=== PATIENT | female | born 1960 | race African-American/Black ===

== ENCOUNTER 2020-10-20 10:25 | Inpatient (IN) | payer MEDICARE, OTHER ==
[~2020-10-20] VITALS: Ht 157.5 cm; Wt 189.0 kg
[~2020-10-20 10:25] MED LIST: ATEN-60 PO; HYDR25TA5 GT
[2020-10-20] MEDS ORDERED: FUROSEMIDE 40 MG/4 ML VIAL IV ONE (11:00)
[2020-10-20 11:13] LABS: Basophils # (auto) 0 10 ^3/uL (0-0.2); Eosinophils # (auto) 0.1 10 ^3/uL (0-0.8); Eosinophils % (auto) 1.5 % (0.0-7.0); Hemoglobin 12.9 g/dL (12.2-16.2); Lymphocytes # (auto) 0.9 10 ^3/uL (0.4-5.4); Monocytes # (auto) 0.7 10 ^3/uL (0-1.3); Nucleated Red Blood Cells % 0.6 %
[2020-10-20 11:14] LABS: Basophils % (auto) 0.6 % (0.0-2.0); Hematocrit 43.1 % (36.0-46.0); Lymphocytes % (auto) 13.1 % (10.0-50.0); Mean Corpuscular Hemoglobin 27.5 pg (28.0-32.0); Mean Corpuscular Hgb Conc. 29.9 g/dL (32.0-36.0); Mean Corpuscular Volume 92.1 fL (80.0-100.0); Monocytes % (auto) 10.3 % (0.0-12.0); Neutrophils % (auto) 74.5 % (37.0-80.0); Red Blood Cells 4.68 10^6/uL (4.0-5.20); White Blood Cell 6.7 10^3/uL (4.4-10.8)
[2020-10-20 11:35] LABS: Calcium 9.4 mg/dL (8.5-10.1); Magnesium 2.2 mg/dL (1.6-2.6); Potassium 4.6 mmol/L (3.5-5.1)
[2020-10-20 11:41] LABS: BUN/Creatinine Ratio 18.9; Bilirubin, Total 1.2 mg/dL (0.2-1.0); Total Protein 8.6 g/dL (6.4-8.2)
[2020-10-20 11:54] LABS: Urine Bacteria NONE SEEN /hpf (None Seen); Urine Blood TRACE /uL (Negative); Urine Hyaline Cast FEW /lpf (0 - 2); Urine Specific Gravity 1.024 (1.001-1.035); Urine WBC 8 /hpf (0 - 5)
[2020-10-20 11:56] LABS: Red Cell Distribution Width 22.5 % (11.8-14.3)
[2020-10-20] MEDS ORDERED: cefTRIAXone 1GM/50ML D5W 50 ML IV ONE (12:30)
[2020-10-20] MEDS ORDERED: NITROGLYCERIN 0.4 MG SL TAB SL PRN ×2 (13:00→16:30)
[2020-10-20] MEDS ORDERED: MORPHINE SULFATE INJECTION 2 MG/ML SYRG IV PRN ×3 (13:00→16:30)
[2020-10-20] MEDS ORDERED: DOCUSATE SOD 100 MG CAP PO PRN (16:30)
[2020-10-20] MEDS ORDERED: ALBUTEROL SULF 2.5 MG/0.5ML(0.5%) NEB SOLN NEB PRN (16:30)
[2020-10-20] MEDS ORDERED: ACETAMINOPHEN 325 MG TAB PO PRN (16:30)
[2020-10-20] MEDS ORDERED: LEVOTHYROXINE SODIUM 100 MCG TAB PO ONE (16:30)
[2020-10-20] MEDS ORDERED: LORazepam 0.5 MG TAB PO PRN (16:30)
[2020-10-20] MEDS ORDERED: hydrALAZINE HCL 20 MG/ML VL IV PRN (16:30)
[2020-10-20] MEDS ORDERED: HYDROcodone-ACET 5/325MG TAB PO PRN (16:30)
[2020-10-20] MEDS ORDERED: DEXTROSE (50%) 50ML SYRG IV PRN (16:30)
[2020-10-20] MEDS ORDERED: ONDANSETRON HCL 4 MG/2 ML VIAL IV PRN (16:30)
[2020-10-20] MEDS ORDERED: ALUM & MAG HYDROX-SIMETH LIQ(MAALOX) 30 ML PO PRN (16:30)
[2020-10-20] MEDS ORDERED: LORazepam 2MG/ML-1ML VIAL IV PRN (16:45)
[2020-10-20 16:57] VITALS: BP 102/48
[2020-10-20] MEDS: InsuLIN REG 1unit/0.01ml Soln (100units/ml) SC SCH ×2 (17:00→21:51)
[2020-10-20] MEDS ORDERED: IPRATROPIUM BROM 0.5 MG/2.5ML INH SOL NEB SCH (18:00)
[2020-10-20 18:10] LABS: Cholesterol 130 mg/dL (< 200); Triglycerides 79 mg/dL (< 150)
[2020-10-20 18:12] LABS: Creatine Kinase IFCC 38 U/L (26-192); HDL Cholesterol 28 mg/dL (40-59); LDL Cholesterol 96 mg/dL (< 100)
[2020-10-20] MEDS: FUROSEMIDE 20 MG/2 ML VIAL IV SCH (18:21)
[2020-10-20] MEDS: ACCU-CHEK COMFORT CURVE STRIP VI SCH ×2 (18:21→21:51)
[2020-10-20] MEDS ORDERED: IPRATROPIUM BROM 0.5 MG/2.5ML INH SOL NEB PRN (20:15)
[2020-10-20] MEDS: ATORVASTATIN 20 MG TAB PO SCH (21:50)
[2020-10-20] MEDS: CLINDAMYCIN 600MG IV 50 ML IV SCH (21:50)
[2020-10-20] MEDS: CARVEDILOL 3.125 MG TAB PO SCH (21:51)
[2020-10-20 22:42] VITALS: BP 123/72
[2020-10-20 22:46] LABS: Urine Bacteria FEW /hpf (None Seen); Urine Blood 2+ /uL (Negative); Urine Hyaline Cast MOD /lpf (0 - 2); Urine Mucus FEW (None Seen); Urine Specific Gravity 1.011 (1.001-1.035); Urine WBC 19 /hpf (0 - 5)
[2020-10-20 22:56] LABS: Alcohol, Urine < 3.0 mg/dL (0-10); Amphetamine Screen, Urine NEGATIVE (NEGATIVE); Barbiturate Scree,Urine NEGATIVE (NEGATIVE); Benzodiazephine Screen, Urine NEGATIVE (NEGATIVE); Cannabinoid Screen, Urine NEGATIVE (NEGATIVE); Cocaine Screen, Urine NEGATIVE (NEGATIVE); Opiate Scree,Urine NEGATIVE (NEGATIVE); Phencyclidine Screen, Urine NEGATIVE (NEGATIVE)
[2020-10-21] VITALS (7 sets, daily range): BP systolic 100–123; BP diastolic 55–73
[2020-10-21] MEDS: FUROSEMIDE 20 MG/2 ML VIAL IV SCH (06:30)
[2020-10-21] MEDS: ACCU-CHEK COMFORT CURVE STRIP VI SCH ×4 (06:30→22:00)
[2020-10-21] MEDS: LEVOTHYROXINE SODIUM 100 MCG TAB PO SCH (06:30)
[2020-10-21] MEDS: CLINDAMYCIN 600MG IV 50 ML IV SCH ×3 (06:30→21:59)
[2020-10-21] MEDS: InsuLIN REG 1unit/0.01ml Soln (100units/ml) SC SCH ×4 (06:31→22:00)
[2020-10-21 08:17] LABS: Basophils # (auto) 0 10 ^3/uL (0-0.2); Eosinophils # (auto) 0.1 10 ^3/uL (0-0.8); Eosinophils % (auto) 1.6 % (0.0-7.0); Hemoglobin 11.9 g/dL (12.2-16.2); Lymphocytes # (auto) 0.7 10 ^3/uL (0.4-5.4); Mean Corpuscular Volume 92.5 fL (80.0-100.0); Neutrophils # (auto) 4.9 10 ^3/uL (1.6-8.6); White Blood Cell 6.8 10^3/uL (4.4-10.8)
[2020-10-21 08:19] LABS: Basophils % (auto) 0.6 % (0.0-2.0); Hematocrit 39.6 % (36.0-46.0); INR 1.25 (0.9-1.15); Lymphocytes % (auto) 11.1 % (10.0-50.0); Mean Corpuscular Hemoglobin 27.8 pg (28.0-32.0); Mean Corpuscular Hgb Conc. 30.1 g/dL (32.0-36.0); Monocytes % (auto) 14.2 % (0.0-12.0); Neutrophils % (auto) 72.5 % (37.0-80.0); Partial Thromboplastin Time 27.7 sec (23.0-31.2); Red Blood Cells 4.28 10^6/uL (4.0-5.20)
[2020-10-21 08:25] LABS: Red Cell Distribution Width 22.3 % (11.8-14.3)
[2020-10-21 08:30] LABS: Albumin 2.8 g/dL (3.4-5.0); Calcium 8.9 mg/dL (8.5-10.1)
[2020-10-21 08:37] LABS: BUN/Creatinine Ratio 21.7; Bilirubin, Total 0.9 mg/dL (0.2-1.0); Phosphorus 3.9 mg/dL (2.5-4.90); Total Protein 7.6 g/dL (6.4-8.2)
[2020-10-21] MEDS: CARVEDILOL 3.125 MG TAB PO SCH (09:36)
[2020-10-21] MEDS: cefTRIAXone 1GM/50ML D5W 50 ML IV SCH (09:36)
[2020-10-21] MEDS ORDERED: ENOXAPARIN SOD 40 MG/0.4 ML SYRINGE SC SCH (10:00)
[2020-10-21] MEDS: FUROSEMIDE 40 MG/4 ML VIAL IV SCH (18:08)
[2020-10-21] MEDS: ENOXAPARIN SOD 40 MG/0.4 ML SYRINGE SC SCH (21:59)
[2020-10-21] MEDS: ATORVASTATIN 20 MG TAB PO SCH (21:59)
[2020-10-22 05:00] VITALS: BP 107/63
[2020-10-22] MEDS: CLINDAMYCIN 600MG IV 50 ML IV SCH (06:23)
[2020-10-22] MEDS: ACCU-CHEK COMFORT CURVE STRIP VI SCH ×4 (06:24→21:42)
[2020-10-22] MEDS: InsuLIN REG 1unit/0.01ml Soln (100units/ml) SC SCH ×4 (06:24→21:42)
[2020-10-22] MEDS: LEVOTHYROXINE SODIUM 100 MCG TAB PO SCH (06:24)
[2020-10-22] MEDS: FUROSEMIDE 40 MG/4 ML VIAL IV SCH (06:24)
[2020-10-22 07:31] LABS: BUN/Creatinine Ratio 18.7; Calcium 9.1 mg/dL (8.5-10.1); Potassium 5.3 mmol/L (3.5-5.1)
[2020-10-22 08:39] VITALS: BP 99/62
[2020-10-22] MEDS: cefTRIAXone 1GM/50ML D5W 50 ML IV SCH (09:51)
[2020-10-22] MEDS: ENOXAPARIN SOD 40 MG/0.4 ML SYRINGE SC SCH ×2 (09:51→21:42)
[2020-10-22 12:47] VITALS: BP 107/68
[2020-10-22] MEDS: ALBUMIN 25% 100 ML IV SCH ×2 (14:51→22:29)
[2020-10-22 15:04] LABS: Urine Bacteria FEW /hpf (None Seen); Urine Blood 3+ /uL (Negative); Urine Hyaline Cast MANY /lpf (0 - 2); Urine Specific Gravity 1.017 (1.001-1.035); Urine WBC 24 /hpf (0 - 5)
[2020-10-22] MEDS: FUROSEMIDE INJECTION 100 MG in D5W 5% 100 ML IV SCH (16:18)
[2020-10-22 17:00] VITALS: BP 107/71
[2020-10-22] MEDS: ATORVASTATIN 20 MG TAB PO SCH (21:41)
[2020-10-22 22:00] VITALS: BP 119/60
[2020-10-23] MEDS: FUROSEMIDE INJECTION 100 MG in D5W 5% 100 ML IV SCH ×3 (00:21→21:44)
[2020-10-23 05:00] VITALS: BP 122/78
[2020-10-23] MEDS: LEVOTHYROXINE SODIUM 100 MCG TAB PO SCH (06:30)
[2020-10-23] MEDS: InsuLIN REG 1unit/0.01ml Soln (100units/ml) SC SCH ×4 (06:30→21:19)
[2020-10-23] MEDS: ACCU-CHEK COMFORT CURVE STRIP VI SCH ×4 (06:30→21:18)
[2020-10-23] MEDS: ALBUMIN 25% 100 ML IV SCH (06:31)
[2020-10-23 07:24] LABS: BUN/Creatinine Ratio 19.7; Calcium 9.1 mg/dL (8.5-10.1); Phosphorus 4.4 mg/dL (2.5-4.90); Potassium 5.4 mmol/L (3.5-5.1)
[2020-10-23 08:30] VITALS: BP 120/71
[2020-10-23] MEDS: cefTRIAXone 1GM/50ML D5W 50 ML IV SCH (08:37)
[2020-10-23 08:45] VITALS: BP 120/71
[2020-10-23] MEDS: ENOXAPARIN SOD 40 MG/0.4 ML SYRINGE SC SCH ×2 (09:42→21:18)
[2020-10-23 12:50] VITALS: BP 120/75
[2020-10-23 16:37] VITALS: BP 119/78
[2020-10-23] MEDS: ATORVASTATIN 20 MG TAB PO SCH (21:18)
[2020-10-23 22:00] VITALS: BP 120/62
[2020-10-24 03:35] VITALS: BP 120/62
[2020-10-24 05:00] VITALS: BP 118/68
[2020-10-24] MEDS: LEVOTHYROXINE SODIUM 100 MCG TAB PO SCH (06:06)
[2020-10-24] MEDS: ACCU-CHEK COMFORT CURVE STRIP VI SCH ×4 (06:07→21:56)
[2020-10-24] MEDS: InsuLIN REG 1unit/0.01ml Soln (100units/ml) SC SCH ×4 (06:07→21:56)
[2020-10-24] MEDS: FUROSEMIDE INJECTION 100 MG in D5W 5% 100 ML IV SCH ×2 (06:30→09:12)
[2020-10-24 08:00] VITALS: BP 112/61
[2020-10-24] MEDS: cefTRIAXone 1GM/50ML D5W 50 ML IV SCH (08:01)
[2020-10-24 09:00] VITALS: BP 112/61
[2020-10-24] MEDS: ENOXAPARIN SOD 40 MG/0.4 ML SYRINGE SC SCH ×2 (09:06→22:42)
[2020-10-24 13:42] LABS: BUN/Creatinine Ratio 22.9; Calcium 9.2 mg/dL (8.5-10.1); Potassium 4.4 mmol/L (3.5-5.1)
[2020-10-24 17:00] VITALS: BP 144/77
[2020-10-24 22:00] VITALS: BP 131/91
[2020-10-24] MEDS: ATORVASTATIN 20 MG TAB PO SCH (22:42)
[2020-10-25] MEDS: FUROSEMIDE INJECTION 100 MG in D5W 5% 100 ML IV SCH ×3 (02:35→21:52)
[2020-10-25 05:00] VITALS: BP 124/88
[2020-10-25] MEDS: LEVOTHYROXINE SODIUM 100 MCG TAB PO SCH (06:47)
[2020-10-25] MEDS: ACCU-CHEK COMFORT CURVE STRIP VI SCH ×4 (06:48→21:51)
[2020-10-25] MEDS: InsuLIN REG 1unit/0.01ml Soln (100units/ml) SC SCH ×4 (06:48→21:51)
[2020-10-25 08:00] VITALS: BP 126/74
[2020-10-25 08:42] VITALS: BP 126/74
[2020-10-25] MEDS: ENOXAPARIN SOD 40 MG/0.4 ML SYRINGE SC SCH ×2 (08:55→22:04)
[2020-10-25] MEDS: cefTRIAXone 1GM/50ML D5W 50 ML IV SCH (08:55)
[2020-10-25 11:19] LABS: BUN/Creatinine Ratio 29.5; Potassium 3.4 mmol/L (3.5-5.1)
[2020-10-25] MEDS ORDERED: POTASSIUM CHL 10 Meq TABLET PO ONE (11:45)
[2020-10-25 14:26] VITALS: BP 119/73
[2020-10-25 17:01] VITALS: BP 133/86
[2020-10-25 22:00] VITALS: BP 118/74
[2020-10-25] MEDS: ATORVASTATIN 20 MG TAB PO SCH (22:03)
[2020-10-25] MEDS: POTASSIUM CHL 10 Meq TABLET PO SCH (22:04)
[2020-10-26 05:00] VITALS: BP 130/75
[2020-10-26] MEDS: InsuLIN REG 1unit/0.01ml Soln (100units/ml) SC SCH ×2 (05:47→11:30)
[2020-10-26] MEDS: ACCU-CHEK COMFORT CURVE STRIP VI SCH ×2 (05:47→13:33)
[2020-10-26] MEDS: LEVOTHYROXINE SODIUM 100 MCG TAB PO SCH (06:07)
[2020-10-26] MEDS: FUROSEMIDE INJECTION 100 MG in D5W 5% 100 ML IV SCH (07:04)
[2020-10-26 07:14] LABS: Potassium 3.4 mmol/L (3.5-5.1)
[2020-10-26 07:18] LABS: BUN/Creatinine Ratio 26.7; Calcium 9.1 mg/dL (8.5-10.1)
[2020-10-26 08:46] VITALS: BP 147/86
[2020-10-26] MEDS: ENOXAPARIN SOD 40 MG/0.4 ML SYRINGE SC SCH (09:33)
[2020-10-26] MEDS: POTASSIUM CHL 10 Meq TABLET PO SCH ×2 (09:33→09:39)
[2020-10-26] MEDS: cefTRIAXone 1GM/50ML D5W 50 ML IV SCH (09:33)
[2020-10-26 12:33] VITALS: BP 122/71
[2020-10-26] MEDS ORDERED: LORazepam 2MG/ML-1ML VIAL IV PRN (16:00)
[2020-10-26] MEDS ORDERED: MORPHINE SULFATE INJECTION 2 MG/ML SYRG IV PRN (16:30)
[2020-10-26 16:42] VITALS: BP 117/72
== END 2020-10-26 20:00 | DRG 100 ==
LOC: ER 10:25 → EDBD 10:25 → TELE 10:26 → TELE-EAST 16:00
PROVIDERS: ADMIT Hospitalist; ATTEND Internal Medicine
PROC: 5A09357 Assistance with Respiratory Ventilation, Less than 24 Consecutive Hours, Continuous Positive Airway Pressure (ICD-10-PCS; principal; 2020-10-20)
PROC: 5A09357 Assistance with Respiratory Ventilation, Less than 24 Consecutive Hours, Continuous Positive Airway Pressure (ICD-10-PCS; 2020-10-21)
PROC: 5A09357 Assistance with Respiratory Ventilation, Less than 24 Consecutive Hours, Continuous Positive Airway Pressure (ICD-10-PCS; 2020-10-22)
PROC: 5A09357 Assistance with Respiratory Ventilation, Less than 24 Consecutive Hours, Continuous Positive Airway Pressure (ICD-10-PCS; 2020-10-23)
PROC: 5A09357 Assistance with Respiratory Ventilation, Less than 24 Consecutive Hours, Continuous Positive Airway Pressure (ICD-10-PCS; 2020-10-24)
PROC: 5A09357 Assistance with Respiratory Ventilation, Less than 24 Consecutive Hours, Continuous Positive Airway Pressure (ICD-10-PCS; 2020-10-26)
DX: G40.909 Epilepsy, unspecified, not intractable, without status epilepticus (principal); I50.33 Acute on chronic diastolic (congestive) heart failure; N17.0 Acute kidney failure with tubular necrosis; J96.21 Acute and chronic respiratory failure with hypoxia; J18.9 Pneumonia, unspecified organism; J96.02 Acute respiratory failure with hypercapnia; J96.01 Acute respiratory failure with hypoxia; J96.22 Acute and chronic respiratory failure with hypercapnia; E44.1 Mild protein-calorie malnutrition; E66.2 Morbid (severe) obesity with alveolar hypoventilation; I16.9 Hypertensive crisis, unspecified; Z68.45 Body mass index [BMI] 70 or greater, adult; I13.0 Hypertensive heart and chronic kidney disease with heart failure and stage 1 through stage 4 chronic kidney disease, or unspecified chronic kidney disease; N30.00 Acute cystitis without hematuria; Z66 Do not resuscitate; Z51.5 Encounter for palliative care; I27.20 Pulmonary hypertension, unspecified; E11.65 Type 2 diabetes mellitus with hyperglycemia; N18.31 Chronic kidney disease, stage 3a; E11.9 Type 2 diabetes mellitus without complications; E87.5 Hyperkalemia; E78.5 Hyperlipidemia, unspecified; E03.9 Hypothyroidism, unspecified; E11.22 Type 2 diabetes mellitus with diabetic chronic kidney disease; Z83.3 Family history of diabetes mellitus; Z91.19 Patient's noncompliance with other medical treatment and regimen; Z20.822 Contact with and (suspected) exposure to COVID-19; E87.70 Fluid overload, unspecified
CPT/HCPCS: 36415; 36600; 51702; 71045; 80048; 80053; 80061; 80307; 81001; 82306; 82550; 82570; 82805; 82962; 83036; 83690; 83735; 83880; 84100; 84146; 84156; 84443; 84484; 84550; 85025; 85610; 85730; 87040; 87086; 87426; 93005; 93306; 93970; 94660; 95819; 96365; 96375; 99291; G0378; J0696; J3490; J7060; P9047